=== PATIENT | female | born 1995 | race Caucasian/White ===

== ENCOUNTER 2017-06-13 14:29 | Outpatient (CLI) | payer OTHER | END 2017-06-13 16:11 | disposition designated cancer center or children's hospital (05) | LOC: NST 14:29 | DX: Z34.83 Encounter for supervision of other normal pregnancy, third trimester (principal); Z3A.37 37 weeks gestation of pregnancy ==

== ENCOUNTER 2017-06-13 15:50 | Emergency (ER) | payer OTHER ==
[~2017-06-13] VITALS: Ht 162.6 cm; Wt 82.6 kg
== END 2017-06-13 18:13 ==
LOC: ER 15:50
DX: J06.9 Acute upper respiratory infection, unspecified (principal)

== ENCOUNTER 2017-06-20 10:15 | Outpatient (CLI) | payer OTHER | END 2017-06-20 12:05 | disposition home or self-care (01) | LOC: NST 10:15 | DX: Z34.83 Encounter for supervision of other normal pregnancy, third trimester (principal) ==